=== PATIENT | female | born 1985 | race Caucasian/White ===

== ENCOUNTER 2017-10-10 00:08 | Inpatient (IN) | payer BC ==
[~2017-10-10] VITALS: Ht 172.7 cm; Wt 122.0 kg
[2017-10-10] MEDS ORDERED: PRENATAL VITAM1 EAC7 PO (03:21)
[2017-10-10] MEDS ORDERED: TYLENOL EXTRA500 MG PO (03:22)
--- NOTE | 2017-10-11 07:44 | PR ---
[facility] [address] [place], [place] [address] Signed PP Progress Notes Datetime Report Generated by CPN: 10/11/2017 07:44 SUBJECTIVE: [id number] Pain: Within normal limits Nausea/Vomiting: Denies Vital Signs: [id number] Vital Signs: Reviewed Notable Details: intermittent mild HTN EXAM: [id number] Cardiovascular: Normal Respiratory: Normal Abdomen/Uterus: Abnormal Lochia: Normal Vulva/Perineum: Not Done Breasts: Not Done CVA Tenderness: Not Done Extremities: Normal Incision: Normal Progress: Not Applicable Exam Comments: Abdomen with active BS. Fundus firm, NT @ U-1. H/H 30.8, WBC 17.9, plat 207k IMPRESSION/PLAN/PROCEDURES: [id number] Impression: Normal progression Other Plans: increase ambulation, shower Procedures: None Progress Notes: Doing well. Will continue current care. Signing Physician: Tessy Kat MD CC: *Electronically Signed* 10/11/17 0744 TESSY KAT MD PATIENT NAME: JASON BALBUENA PROGRESS NOTE DATE OF : 87 PHYSICIAN: TESSY KAT MD RPT #: [id number] REPORT IS CONFIDENTIAL AND NOT TO BE RELEASED WITHOUT AUTHORIZATION
--- NOTE | 2017-10-12 09:57 | PR ---
[facility] [address] [facility] [place], [place] [address] Signed PP Progress Notes Datetime Report Generated by CPN: 10/12/2017 09:57 SUBJECTIVE: [id number] Pain: Within normal limits Nausea/Vomiting: Denies Flatus: Yes Bowel Movement: Yes Vital Signs: [id number] Vital Signs: Reviewed Notable Details: mild HTN EXAM: [id number] Cardiovascular: Not Done Respiratory: Not Done Abdomen/Uterus: Abnormal Lochia: Normal Vulva/Perineum: Not Done Breasts: Not Done CVA Tenderness: Not Done Extremities: Normal Incision: Normal Progress: Not Applicable Exam Comments: Abdomen with active BS. Fundus firm, NT @ U-1. IMPRESSION/PLAN/PROCEDURES: [id number] Impression: Normal progression; Induced Hypertension Plan: Remove justina; Discharge Other Plans: increase ambulation, shower Procedures: None Progress Notes: Doing well though BPs still slightly increased. She is ready for D/C. Signing Physician: Tessy Kat MD CC: *Electronically Signed* 10/12/17 0957 TESSY KAT MD PATIENT NAME: JASON BALBUENA PROGRESS NOTE DATE OF : 87 PHYSICIAN: TESSY KAT MD RPT #: [id number] REPORT IS CONFIDENTIAL AND NOT TO BE RELEASED WITHOUT AUTHORIZATION
--- NOTE | 2017-10-17 08:44 | OR ---
[facility] [address] [place], [place] [address] Signed DATE OF OPERATION: 10/10/2017 SURGEON: Tessy Kat MD LINTER SAW SHARPENER: Dr. Morin. PREOPERATIVE DIAGNOSIS: Post-dates , non-reassuring status. POSTOPERATIVE DIAGNOSIS: Post-dates , non-reassuring status, delivered. PROCEDURE: Primary section with low segment transverse uterine incision. ANESTHESIA: Spinal. ESTIMATED BLOOD LOSS: 700 mL. DRAINS: Ghosh catheter. INDICATIONS AND FINDINGS: The patient is a 32-year-old female, 1, para 0, admitted at 41 weeks for induction secondary to postdates. Her cervix was unfavorable on admission. She received one Cytotec after reassuring heart tracing. However, when she was put back on the monitor for the 2nd Cytotec, she was having a prolonged deceleration. These continued despite the fact that she was hardly eugenia at all. It was felt that the baby would not tolerate labor, as she was still closed and there was no indication of the delivery that would occur in the near future. She was counseled and then taken to the OR for the primary section. She was then delivered of a little girl via lower segment transverse uterine incision from the ROT position with Apgars of 8, 9 and weight of 7 pounds 13 ounces. There was thick meconium at delivery. The uterus had evidence of fibroids in the mid fundus as well as a subserosal fibroid, left superior fundus. PROCEDURE IN DETAIL: The patient was prepped and draped in the supine position. A Pfannenstiel skin incision was made and carried down through the fascia. The incision was extended laterally. The inferior and superior fascial flaps were then created. The peritoneum was opened bluntly and the incision extended superiorly and inferiorly. The Scar retractor was then placed. The incision was made at the superior aspect of the peritoneal reflection. The lower segment was fairly narrow. The incision was extended bluntly. The membranes were ruptured artificially and the baby delivered with the above findings and handed off to the flume worker in attendance. Cord gases were obtained as well as cord blood. The placenta was removed manually and the uterus explored with a lap tape showing no Electronically Signed By: TESSY KAT MD 10/17/17 0844 PATIENT NAME: JASON BALBUENA OPERATIVE REPORT DATE OF : 87 PHYSICIAN: TESSY KAT MD REPORT #: [id number] REPORT IS CONFIDENTIAL AND NOT TO BE RELEASED WITHOUT AUTHORIZATION [facility] [address] [place] [id number] Signed remaining fragments. The edges of the incision were identified and the uterus was closed in two layers. The first layer was a running and locking stitch and the second was a vertical imbricating stitch. There were no extensions to the incision. The abdomen was then copiously irrigated, inspected and good hemostasis was again noted. The retractor was removed and the peritoneum identified. A cell graft was laid over the lower segment to aid in healing. The peritoneum was then closed in a running suture of 3-0 Vicryl. The muscles were brought together with interrupted sutures of 0 Vicryl. Bleeding points in the fascia were controlled with cautery. ACell powder was sprinkled over the muscles to aid in healing. The fascia was then closed from each angle to the midline with a running suture of 0 Vicryl. The subcutaneous tissue was irrigated and bleeding points controlled. Because of the depth of the tissue, another ACell powder was sprinkled in the subcu and interrupted sutures of 3-0 Vicryl were placed and closed in the deep space. The skin was closed with justina. All sponge and needle counts were correct. She tolerated the procedure well, was taken to the recovery room in good condition. Tessy Kat MD PJW/MODL /[id number] cc: Sascha Morin DO Electronically Signed By: TESSY KAT MD 10/17/17 0844 PATIENT NAME: JASON BALBUENA OPERATIVE REPORT DATE OF : 87 PHYSICIAN: TESSY KAT MD REPORT #: [id number] REPORT IS CONFIDENTIAL AND NOT TO BE RELEASED WITHOUT AUTHORIZATION
== END 2017-10-12 12:37 | disposition home or self-care (01) | DRG 766 ==
LOC: FBC 00:08
PROVIDERS: ADMIT Obstetrics & Gynecology
PROC: 3E0P7VZ Introduction of Hormone into Female Reproductive, Via Natural or Artificial Opening (ICD-10-PCS; principal; 2017-10-10 05:00)
PROC: 10D00Z1 Extraction of Products of Conception, Low, Open Approach (ICD-10-PCS; principal; 2017-10-10 05:00)
DX: O76 Abnormality in fetal heart rate and rhythm complicating labor and delivery (principal); Z37.0 Single live birth; O48.0 Post-term pregnancy; Z3A.41 41 weeks gestation of pregnancy; O13.4 Gestational [pregnancy-induced] hypertension without significant proteinuria, complicating childbirth; O99.334 Smoking (tobacco) complicating childbirth; F17.210 Nicotine dependence, cigarettes, uncomplicated; O77.0 Labor and delivery complicated by meconium in amniotic fluid
CPT/HCPCS: 01961; 36415; 82803; 85027; 99406; C1763; J0690; J1100; J1200; J1644; J2274; J2405; J2590; J2765; J3010; J7120

== ENCOUNTER 2019-07-12 17:19 | Emergency (ER) | payer OTHER ==
[~2019-07-12] VITALS: Ht 172.7 cm; Wt 122.0 kg
[~2019-07-12 17:19] MED LIST: PRENATAL VITAM1 EAC7 PO; TYLENOL EXTRA500 MG PO
[2019-07-12] MEDS ORDERED: TRAMADOL HCL50 MG PO (19:05)
[2019-07-12] MEDS ORDERED: AUGMENTIN 875-1 EACH PO (19:05)
== END 2019-07-12 19:30 | disposition home or self-care (01) ==
LOC: ED 17:19
DX: S51.852A Open bite of left forearm, initial encounter (principal); F17.200 Nicotine dependence, unspecified, uncomplicated; W54.0XXA Bitten by dog, initial encounter
CPT/HCPCS: 90471; 90715; 99283-25; 99406